=== PATIENT | female | born 1995 | race Caucasian/White ===

== ENCOUNTER 2018-01-17 08:40 | Emergency (ER) | payer OTHER ==
[2018-01-17 09:06] LABS: URINE BLOOD (Dip) POC 2+ (NEGATIVE); URINE GLUCOSE (Dip) POC Negative (NEGATIVE); URINE KETONES (Dip) POC Negative (NEGATIVE); URINE LEUKOCYTE EST (Dip) POC 3+ (NEGATIVE); URINE NITRITE (Dip) POC Negative (NEGATIVE); URINE TOTAL PROTEIN POC Negative (NEGATIVE)
[2018-01-17 09:36] LABS: ADD UMIC YES; UR ASCORBIC ACID NEGATIVE (NEGATIVE); UR BACTERIA FEW /HPF (NONE SEEN); UR BILIRUBIN (Dip) NEGATIVE (NEGATIVE); UR BLOOD (Dip) 1+ mg/dL (NEGATIVE); UR CLARITY SLIGHTLY CLOUDY (CLEAR); UR COLOR YELLOW (YELLOW); UR GLUCOSE (Dip) NEGATIVE (NEGATIVE); UR KETONES (Dip) NEGATIVE (NEGATIVE); UR LEUKOCYTE ESTERASE (Dip) 3+ Leu/ul (NEGATIVE); UR NITRITE (Dip) NEGATIVE (NEGATIVE); UR RBC 9 /HPF (0-5); UR SPECIFIC GRAVITY (Dip) 1.012 (1.003-1.030); UR SQUAMOUS EPITHELIAL CELL FEW /HPF (FEW); UR TOTAL PROTEIN (Dip) NEGATIVE (NEGATIVE); UR UROBILINOGEN (Dip) NEGATIVE (NEGATIVE); UR WBC 107 /HPF (0-5)
[2018-01-17] MEDS: CEFTRIAXONE 1 GM INJ IM (09:55)
== END 2018-01-17 10:15 | disposition home or self-care (01) ==
LOC: FTE 08:40
DX: N39.0 Urinary tract infection, site not specified (principal)
CPT/HCPCS: 81001; 81003; 81025; 87086; 87210; 87591; 96372; 99284-25

== ENCOUNTER 2018-02-13 09:47 | Emergency (ER) | payer OTHER ==
[2018-02-13 10:16] LABS: URINE BLOOD (Dip) POC 3+ (NEGATIVE); URINE KETONES (Dip) POC Trace (NEGATIVE); URINE LEUKOCYTE EST (Dip) POC Trace (NEGATIVE); URINE NITRITE (Dip) POC Positive (NEGATIVE); URINE TOTAL PROTEIN POC 2+ (NEGATIVE)
[2018-02-13 10:16] LABS: URINE PH (Dip) POC 5.5 (5.0-8.5)
[2018-02-13] MEDS: CEFTRIAXONE 1 GM INJ IM (11:30)
[2018-02-13] MEDS: LIDOCAINE 1% (MPF) 5 ML VIAL INJ (11:30)
== END 2018-02-13 12:07 | disposition home or self-care (01) ==
LOC: FTE 09:47
DX: N39.0 Urinary tract infection, site not specified (principal)
CPT/HCPCS: 81003; 81025; 87086; 96372; 99284-25